=== PATIENT | female | born 1995 | race Caucasian/White ===

== ENCOUNTER 2016-11-11 17:22 | Outpatient (CLI) | payer SELFPAY ==
[~2016-11-11] VITALS: Ht 157.5 cm; Wt 65.0 kg
[~2016-11-11 17:22] MED LIST: ACET500C5 PO; METO10TA92 PO; ONDA4TAB35 PO
[2016-11-11 17:27] VITALS: Ht 157.5 cm; Wt 65.0 kg
--- NOTE | 2016-11-11 18:21 | TRIAGE ---
OB Triage Datetime Report Generated by CPN: 11/11/2016 18:21 Datetime: 11/11/2016 18:11 Maternal Assessment Level of Consciousness: Fully Conscious DTR's/Clonus: DTRs 1+ Headache: Denies Blurred Vision: Yes Respiratory Effort: Unlabored Breath Sounds, Left: Clear and Equal Breath Sounds, Right: Clear and Equal Nausea/Vomiting: Denies RUQ Epigastric Pain: Denies Facial Edema: None Labor Evaluation Frequency: NONE Monitor Mode: External Resting Tone [place]: Relaxed Heart Rate FHR Baseline Rate: 135 Monitor Mode: External US Variability: Moderate 6-25 bpm Accelerations: 15X15 Decelerations: None Category: Category I Pain Assessment Pain Scale: 0 Pain Presence: None/Denies Pain Type: N/A Pain Goal: 0 Vaginal Exam Dilatation (cms): 1.0 Effacement (%): 40 Station: -3 Exam By: Christiano SOUZA RN Membrane Status: Intact Vaginal Bleeding: None Cervix, Consistency: Soft Cervix, Position: Posterior Presentation 'A': Cephalic Datetime: 11/11/2016 17:26 Assessment Type: Triage Maternal Assessment Level of Consciousness: Fully Conscious DTR's/Clonus: DTRs 2+; No Clonus Headache: Denies Blurred Vision: No Respiratory Effort: Unlabored; Regular Rhythm; Equal Expansion Breath Sounds, Left: Clear and Equal Breath Sounds, Right: Clear and Equal Nausea/Vomiting: Denies RUQ Epigastric Pain: Denies Lower Extremities Edema: None Degree: None Upper Extremities Edema: None Degree: None Facial Edema: None Fall Risk Assessment History of Falling: (0) No Secondary Diagnosis: (0) No Ambulatory Aid: (0) Bedrest/Nurse Assist IV Therapy: (0) No Gait: (0) Normal/Bedrest/Immobile Mental Status: (0) Oriented to Own Ability Fall Score: 0 Fall Risk Score Definition: No Risk: No action required Datetime: 11/11/2016 17:20 Time of Arrival: 11/11/2016 17:20 EGA: 39.2 Arrived By: Ambulatory Arrived From: Home Chief Complaint: PT CAME IN TO R/O SROM. PT STATES THAT SHE BEEN LEAKING SINCE 0900 ON AND OFF DEN IES ANY UC'S AND STATES + FM Movement: Present Contractions: Denies/Absent Rupture of Membranes: Unsure Vaginal Bleeding: None Vaginal Discharge: Denies Recent Sexual Intercouse: Denies Abdominal Trauma: Not Applicable Patient Complaints: Other Additional Patient Complaints: NONE Time Provider Notified: 11/11/2016 17:30 Provider Notified: EVITA/ALEK Initial Plan: MONITOR, VE AND BPP
--- NOTE | 2016-11-11 18:50 | PN ---
Date/Time of Note Date/Time of Note DATE: 11/11/16 TIME: 18:36 OB Subjective Subjective Subjective November 11, 2006 OB triage consult This patient is a 21 years old 1 para 0, with EDC of November 16, 2016 which makes her 39 weeks and 2 days, She came into triage complaining of a possible rupture of membrane, she describes passing of the clear fluid around 9/15 this morning On examination she is a well-developed well-nourished lady at term Her abdomen is soft. does not have much of the contractions Fetus is in vertex presentation no CVA tenderness no tenderness at the bladder area however she has a slight tenderness at the suprapubic area on pelvic examination she did not have much of a fluid in the vagina , no pooling; Nitrazine test also was negative . Her Marlon plus requested which came back negative her blood pressure 118/79 pulse rate 82 temperature 90 Due to lack of any evidence of rupture membrane situation was discussed with the patient And she was discharged home to be followed in the clinic and to return to the hospital if any further evidence of rupture of membrane bleeding or beginning of contractions Laboratory Tests Test 11/11/16 17:40 Membranes Rupture NEGATIVE I should mention that on ultrasound study her biophysical profile was 8 out of 8 and her DIANE was 9.3 cm, End of dictation thank you Laboratory Tests Test 11/11/16 17:40 Membranes Rupture NEGATIVE DYLLAN GASTON MD Nov 11, 2016 18:49
--- NOTE | 2016-11-11 19:13 | RADRPT ---
PROCEDURE: Ultrasound CLINICAL INDICATION: . TECHNIQUE: Ultrasound examination of for evaluation of biophysical profile. COMPARISON: 10/22/2016. FINDINGS: breathing is appropriate for a score of 2; movement is appropriate for a score of 2; fet al tone is appropriate for a score of 2; and amniotic fluid is appropriate for age score of 2. Biophysical profile score of 05/14. Single live intrauterine is identified with estimated gestational age of 39 weeks and 2 da ys. The placenta is posterior. Placenta is grade II. Presentation is cephalic. Heart motion is detected at a rate of 132 beats per minute. DIANE is 9.10 IMPRESSION: Biophysical profile of 05/14. RPTAT: UU Physician Corby Date Time Electronically viewed and signed by Physician Corby on 11/11/2016 19:12 RS/
== END 2016-11-11 18:08 | disposition home or self-care (01) ==
LOC: OBT 17:22 → L-D 17:23 → OBT 18:08
PROVIDERS: ATTEND Obstetrics & Gynecology
DX: O47.1 False labor at or after 37 completed weeks of gestation (principal); Z3A.39 39 weeks gestation of pregnancy
CPT/HCPCS: 76818; 84112; G0463

== ENCOUNTER 2016-11-13 16:23 | Inpatient (IN) | payer OTHER ==
[~2016-11-13] VITALS: Ht 157.5 cm; Wt 84.2 kg
[2016-11-13 16:44] VITALS: Ht 157.5 cm; Wt 84.2 kg
[2016-11-13 16:45] VITALS: BP 126/85; PULSE 94; RESP 18
[2016-11-13] MEDS ORDERED: PRENAT PO (16:47)
[2016-11-13] MEDS ORDERED: FERR325C PO (16:48)
--- NOTE | 2016-11-13 18:26 | PN ---
Date/Time of Note Date/Time of Note DATE: 11/13/16 TIME: 18:21 OB Subjective Subjective Subjective November 13, 2016 Triage consult This patient is a 23 years old 2 para 0 with due date of November 16, 2016. Came in the triage area complaining of contractions since 6:00 AM. She is now 39 weeks and 4 days . No vaginal bleeding . She describe her contraction happening every 5-6 minutes. Her blood pressure was 126/85, pulse 94, respiration were normal As I mentioned she had contractions with 5-6 minutes apart On pelvic examination her cervix is about 2-3 cm about 70-75% station, -2to 3. Members intact. Current Medications Medications (Trade) Dose Ordered Sig/Mohan Route PRN Reason Start Time Stop Time Status Last Admin Dose Admin Lactated Ringer's (Lr) 1,000 ml @ 125 mls/hr Q8H IV 11/13/16 20:47 11/14/16 13:47 DC 11/14/16 05:22 Butorphanol Tartrate (Stadol) 1 mg Q2H PRN IV PAIN 11/13/16 21:00 11/14/16 13:47 DC Butorphanol Tartrate (Stadol) 2 mg Q2H PRN IV PAIN 11/13/16 21:00 11/14/16 13:47 DC Lidocaine 30 ml 30 ml ONCE PRN INJ EPISIOTOMY/TEARING 11/13/16 21:00 11/14/16 13:47 DC 11/14/16 12:07 Oxytocin/Lactated Ringer's 500 ml @ 125 mls/hr ONCE -MAY REPEAT X1 IV 11/13/16 21:00 11/14/16 13:47 DC 11/14/16 11:47 Oxytocin/Lactated Ringer's 500 ml @ 125 mls/hr ONCE IV 11/13/16 21:00 11/14/16 13:47 DC 11/14/16 12:18 Ibuprofen (Motrin) 600 mg ONCE PRN PO Mild Pain (Pain Score 1-3) 11/13/16 21:00 11/14/16 13:47 DC Acetaminophen/ Codeine Phosphate 2 tab 2 tab ONCE PRN PO Moderate to Severe Pain (4-10) 11/13/16 21:00 11/14/16 13:47 DC Lactated Ringer's 1,000 ml @ 2,000 mls/hr Q30M PRN IV PRE-EPIDURAL BOLUS 11/13/16 21:00 11/14/16 13:48 DC 11/14/16 04:17 Oxytocin/Lactated Ringer's 500 ml @ 0 mls/hr ONCE PRN IV For Hemorrhage Management 11/13/16 21:00 11/14/16 13:48 DC Methylergonovine Maleate (Methergine) 0.2 mg ONCE PRN IM VAGINAL BLEEDING 11/13/16 21:00 11/14/16 13:48 DC Carboprost Tromethamine (Hemabate) 250 mcg ONCE PRN IM VAGINAL BLEEDING 11/13/16 21:00 11/14/16 13:47 DC Misoprostol 1000 mcg 1,000 mcg ONCE PRN NM VAGINAL BLEEDING 11/13/16 21:00 11/14/16 13:48 DC Fentanyl/ Ropivacaine 100 ml @ ud STK-MED ONCE .ROUTE 11/14/16 04:52 11/14/16 04:53 DC Naloxone HCl (Narcan) 0.1 mg Q2M PRN IV FOR RESP RATE 8 OR LESS 11/14/16 06:00 11/14/16 13:47 DC Ketorolac Tromethamine (Toradol) 30 mg Q6H PRN IV PAIN 11/14/16 06:00 11/14/16 13:47 DC Fentanyl/ Ropivacaine 100 ml EPIDURAL INFUSION EPI 11/14/16 06:00 11/14/16 13:47 DC Ondansetron HCl (Zofran Inj) 4 mg ONCE ONCE IV 11/14/16 06:17 11/14/16 06:18 DC 11/14/16 06:26 Acetaminophen 650 mg 650 mg ONCE ONCE PO 11/14/16 06:30 11/14/16 06:31 DC 11/14/16 06:26 Oxytocin/Lactated Ringer's 500 ml @ 125 mls/hr Q4H IV 11/14/16 13:44 11/14/16 21:43 DC 11/14/16 20:01 Ibuprofen (Motrin) 600 mg Q6 PO 11/14/16 14:00 11/16/16 19:38 DC 11/16/16 12:11 Acetaminophen (Tylenol Tab) 650 mg Q4H PRN PO PAIN LEVEL 1-5 11/14/16 14:00 11/16/16 19:38 DC 11/15/16 21:11 Acetaminophen/ Codeine Phosphate (Tylenol No.3) 1 tab Q4H PRN PO PAIN LEVEL 1-5 11/14/16 14:00 11/16/16 19:38 DC Acetaminophen/ Codeine Phosphate (Tylenol No.3) 2 tab Q4H PRN PO PAIN LEVEL 6-10 11/14/16 14:00 11/16/16 19:38 DC 11/16/16 09:34 Oxycodone/Aspirin (Percodan) 1 tab Q3H PRN PO PAIN LEVEL 1-5 11/14/16 14:00 11/16/16 19:38 DC Oxycodone/Aspirin (Percodan) 2 tab Q3H PRN PO PAIN LEVEL 6-10 11/14/16 14:00 11/16/16 19:38 DC Ondansetron HCl (Zofran Inj) 4 mg Q6H PRN IV NAUSEA AND/OR VOMITING 11/14/16 14:00 11/16/16 19:38 DC Senna/Docusate Sodium (Senokot-S) 1 tab BID PO 11/14/16 21:00 11/16/16 19:38 DC 11/15/16 20:59 Witch Meme/ Glycerin (Tucks Pads) 1 pad BEDSIDE MEDICATION PRN [place] HEMORRHOID/EPISIOTMY PAIN 11/14/16 14:00 11/16/16 19:38 DC 11/15/16 00:42 Benzocaine (Dermoplast [place]) 1 spray BEDSIDE MEDICATION PRN TOP HEMORRHOID/EPISIOTMY PAIN 11/14/16 14:00 11/16/16 19:38 DC 11/14/16 16:13 Dibucaine (Nupercainal) 1 applic BEDSIDE MEDICATION PRN [place] HEMORRHOID/EPISIOTMY PAIN 11/14/16 14:00 11/16/16 19:38 DC 11/15/16 00:42 Lanolin (Hxf-Y-Ziluyz) 1 applic BEDSIDE MEDICATION PRN TOP BEDSIDE FOR GALEN TO NIPPLES 11/14/16 14:00 11/16/16 19:38 DC 11/15/16 00:42 Measles/Mumps/ Rubella Vaccine Live (Mmr Ii Vaccine) 0.5 ml ONCE ONCE SC* 11/16/16 09:00 11/16/16 09:01 DC Influenza Virus Vaccine (Fluzone) 0.5 ml ONCE ONCE IM* 11/16/16 09:00 11/16/16 09:01 DC 11/15/16 16:33 Diphtheria/ Tetanus/Acell Pertussis (Adacel) 0.5 ml ONCE ONCE IM* 11/15/16 16:30 11/15/16 16:31 DC 11/16/16 15:44 Diphtheria/ Tetanus/Acell Pertussis (Adacel) 0.5 ml ONCE ONCE IM* 11/16/16 10:00 11/16/16 10:01 DC Plan : we will keep her in triage area for another hour, if contraction continues or there is any changes in the cervix we will admit her in labor delivery room for delivery. DYLLAN GASTON MD Nov 13, 2016 18:25
[2016-11-13] MEDS ORDERED: METHYLERGONOVINE 0.2 MG INJ IM PRN (21:00)
[2016-11-13] MEDS ORDERED: MISOPROSTOL 200 MCG TAB PR PRN (21:00)
[2016-11-13] MEDS ORDERED: BUTORPHANOL 2 MG INJ IV PRN ×2 (21:00)
[2016-11-13] MEDS ORDERED: LIDOCAINE 1% (MPF) 30 ML INJ INJ PRN (21:00)
[2016-11-13] MEDS ORDERED: IBUPROFEN 600 MG TAB PO PRN (21:00)
[2016-11-13] MEDS ORDERED: LACTATED RINGER'S 1,000 ML IV PRN (21:00)
[2016-11-13] MEDS ORDERED: ACETAMINOPHEN/CODEINE #3 TAB PO PRN (21:00)
[2016-11-13] MEDS ORDERED: CARBOPROST 250 MCG INJ IM PRN (21:00)
[2016-11-13] MEDS ORDERED: OXYTOCIN 30 UNITS/LR 500 ML IV SCH ×2 (21:00)
[2016-11-13] MEDS ORDERED: OXYTOCIN 30 UNITS/LR 500 ML IV PRN (21:00)
[2016-11-13] MEDS: LACTATED RINGER'S 1,000 ML IV SCH (21:25)
[2016-11-13 22:13] LABS: INR 0.92; PARTIAL THROMBOPLASTIN TIME 27.7 Sec (25.0-35.0); PROTIME 12.4 Sec (12.2-14.2)
[2016-11-13 22:20] LABS: BASOPHILS % 0.2 % (0.0-2.0); EOSINOPHILS % 0.1 % (0.0-7.0); HEMATOCRIT 37.2 % (37.0-47.0); HEMOGLOBIN 11.8 g/dl (12.0-16.0); LYMPHOCYTES % 20.9 % (18.0-55.0); MEAN CORPUSCULAR HEMOGLOBIN 23.1 pg (29.0-33.0); MEAN CORPUSCULAR HGB CONC 31.8 g/dl (32.0-37.0); MEAN CORPUSCULAR VOLUME 72.5 fl (72.0-104.0); MEAN PLATELET VOLUME 11.5 fl (7.4-10.4); MONOCYTE # 0.9 10^3/ul (0.3-0.9); NEUTROPHIL # 10.5 10^3/ul (1.6-7.5); NEUTROPHILS % 72.8 % (30.0-74.0); PLATELET COUNT 225 10^3/UL (140-440); RED BLOOD COUNT 5.13 10^6/ul (4.20-5.40); RED CELL DISTRIBUTION WIDTH 16.4 % (11.5-14.5); UNCORRECTED WBC 14.4 10^3/ul (4.8-10.8); WHITE BLOOD COUNT 14.4 10^3/ul (4.8-10.8)
[2016-11-13 22:22] LABS: CONDITION 1; LH ANALYZER COMMENTS 1
[2016-11-13 23:08] LABS: ALBUMIN 3.2 g/dl (3.3-4.9)
[2016-11-13 23:09] LABS: POTASSIUM 3.7 mmol/L (3.5-5.1)
[2016-11-13 23:11] LABS: BILIRUBIN,INDIRECT 0.2 mg/dl (0-1.1); BILIRUBIN,TOTAL 0.2 mg/dl (0.2-1.3); CREATININE 0.57 mg/dl (0.44-1.00)
[2016-11-13 23:12] LABS: ALBUMIN/GLOBULIN RATIO 0.96; CALCIUM 9.2 mg/dl (8.4-10.2); TOTAL PROTEIN 6.5 g/dl (6.1-8.1); URIC ACID 5.1 mg/dl (3.1-7.9)
--- NOTE | 2016-11-13 23:36 | HP ---
Date/Time of Note Date/Time of Note DATE: 11/13/16 TIME: 23:33 OB - History Hx of Present Chief Complaint: contractions Estimated Due Date: Nov 16, 2016 : 1 Para: 0 Spontaneous : 0 Therapeutic : 0 Care: Good Care Obstetrical Complications: None Medical Complications: None Past Family/Social History * Past Medical, Surgical, Family and Obstetric Histories reviewed from chart. GBS Status: Negative OB Admission Exam Vital Signs Vital Signs Vital Signs Date Time Temp Pulse Resp B/P Pulse Ox O2 Delivery O2 Flow Rate FiO2 11/13/16 16:45 98.3 94 18 126/85 Room Air Physical Exam HEENT: WNL Heart: Rhythm Normal Lungs: Clear Abdomen: WNL Extremities: Normal Cervical Dilatation: 3cm Effacement: 75% Station: -1 Membranes: Intact Heart Rate: 130's Accelerations: Accelerations Present Decelerations: No Decelerations Varibility: Moderate Last 72 hours Lab Results CBC & BMP 11/13/16 21:25 Liver Function Test 11/13/16 21:25 Alanine Aminotransferase (ALT/SGPT) 18 Albumin 3.2 L Alkaline Phosphatase 189 H Aspartate Amino Transf (AST/SGOT) 29 Direct Bilirubin 0.00 Total Protein 6.5 OB Assessment/Plan Reason for admission: active labor Plan: Expectant Management LOKI HOLLINGSWORTH MD Nov 13, 2016 23:36
[2016-11-13 23:44] LABS: ADD UMIC YES; URINE BILIRUBIN (Dip) NEGATIVE (NEGATIVE); URINE BLOOD (Dip) 3+ (NEGATIVE); URINE COLOR LT. YELLOW (YELLOW); URINE GLUCOSE (Dip) NEGATIVE (NEGATIVE); URINE KETONES (Dip) 3+ (NEGATIVE); URINE LEUKOCYTE ESTERASE (Dip) 2+ (NEGATIVE); URINE NITRITE (Dip) NEGATIVE (NEGATIVE); URINE TOTAL PROTEIN (Dip) TRACE (NEGATIVE); URINE UROBILINOGEN (Dip) 0.2 E.U./dL (0.1-1.0)
[2016-11-14 00:11] LABS: BACTERIA,URINE MANY; SQUAMOUS EPITHELIAL CELL,UR MODERATE; URINE RBCS >50 /HPF (0)
[2016-11-14] MEDS ORDERED: FENTAnyl 2MCG/ML-ROPIV 0.2% 100 ML ONE (04:52)
[2016-11-14] MEDS: LACTATED RINGER'S 1,000 ML IV SCH (05:22)
[2016-11-14] MEDS ORDERED: NALOXONE (0.4 MG/ML) INJ IV PRN (06:00)
[2016-11-14] MEDS ORDERED: FENTAnyl 2MCG/ML-ROPIV 0.2% 100 ML BAG EPI SCH (06:00)
[2016-11-14] MEDS ORDERED: KETOROLAC 30 MG INJ IV PRN (06:00)
[2016-11-14] MEDS ORDERED: ONDANSETRON 4 MG INJ IV ONE (06:17)
[2016-11-14] MEDS ORDERED: ACETAMINOPHEN 325 MG TAB PO ONE (06:30)
--- NOTE | 2016-11-14 12:16 | LDN ---
Date/Time of Note Date/Time of Note DATE: 11/14/16 TIME: 12:13 Delivery Summary called to cover for urgent delivery. Patient had been managed during labor by Dr. Giles. I was called due to patient's significant urge to delivery Placenta Delivered: Spontaneously Meconium: none Perineum intact?: No Perineal laceration: 2 Perineal laceration repair: second degree perineal laceration. repaired with 2-0 chromic Anesthesia type: Epidural Estimated blood loss: 400 Sponge & Needle done & correct: Yes All needle counts correct: Yes Any foreign bodies felt in the: No Problems: Infant Delivery Information Sex Infant Sex: female Apgars 1 Minute: 9 5 Minute: 9 Suctioning Nose & mouth suctioned at leon: Yes Delee suction performed: Yes Umbilical Cord Umbilical cord with: 3 Vessels Cord presentations: no nuchal cord Cord Blood was obtained: Yes TERESA HI MD Nov 14, 2016 12:15
--- NOTE | 2016-11-14 13:30 | DELSUM ---
Delivery Summary A-C Datetime Report Generated by CPN: 11/14/2016 13:30 DELIVERY PERSONNEL [employer] Operator: Will, Georgina MATERNAL INFORMATION Delivery Anesthesia: Epidural Medications in Delivery: 30 UNITS PITOCIN IN 500 ML LR Estimated Blood Loss (ml): 400 Placenta Cultured: No Maternal Complications: None LABOR SUMMARY EDC: 11/16/2016 00:00 No. Babies in Womb: 1 Attempted: No Labor Anesthesia: Epidural LABOR INFORMATION Reason for Induction: Not Applicable Onset of Labor: 11/13/2016 06:00 Complete Dilatation: 11/14/2016 09:39 Oxytocin: N/A Group B Beta Strep: Negative Antibiotics # of Doses: 0 Antibiotics Time of Last Dose: 0 Steroids Given: None Reason Steroids Not Administered: Not Applicable MEMBRANES Membranes Rupture Method: Artificial Rupture of Membranes: 11/14/2016 08:28 Length of Rupture (hr): 3.23 Amniotic Fluid Color: Clear Amniotic Fluid Amount: Moderate Amniotic Fluid Odor: None STAGES OF LABOR Stage 1 hr: 27 Stage 1 min: 39 Stage 2 hr: 2 Stage 2 min: 3 Stage 3 hr: 0 Stage 3 min: 4 Total Time in Labor hr: 29 Total Time in Labor min: 46 VAGINAL DELIVERY Episiotomy: None Laceration Extension: Second Degree Laceration Type: Perineal; Vaginal Laceration Repair: Yes Initial Vag Sponge Count: 20 Final Vag Sponge Count: 20 Initial Vag Sharps Count: 1 Final Vag Sharps Count: 3 Sponge Count Correct: Yes; Vaginal Sweep Performed Sharps Count Correct: Yes BABY A INFORMATION Delivery Date/Time: 11/14/2016 11:42 Method of Delivery: Vaginal Born in Route : No : N/A Forceps: N/A Vacuum Extraction: N/A Shoulder Dystocia : N/A SHOULDER DYSTOCIA BABY A Delivery Date/Time: 11/14/2016 11:42 PRESENTATION/POSITION BABY A Presentation: Cephalic Presentation: Cephalic Presentation: Cephalic Presentation: Cephalic Presentation: Cephalic Cephalic Presentation: Vertex Vertex Position: Left Occipital Anterior Breech Presentation: N/A PLACENTA INFORMATION BABY A Placenta Delivery Time : 11/14/2016 11:46 Placenta Method of Delivery: Spontaneous Placenta Status: Delivered SCORES BABY A Heart Rate 1 min: >100 bpm Resp Effort 1 min: Good Cry Reflex Irritability 1 min: Cough/Sneeze/Pulls Away Muscle Tone 1 min: Active Motion Color 1 min: Body Iatan, Extremit Blue Resuscitation Effort 1 min: Tactile Stimulation SCORE 1 MIN: 9 Heart Rate 5 min: >100 bpm Resp Effort 5 min: Good Cry Reflex Irritability 5 min: Cough/Sneeze/Pulls Away Muscle Tone 5 min: Active Motion Color 5 min: Body Iatan, Extremit Blue Resuscitation Effort 5 min: Tactile Stimulation SCORE 5 MIN: 9 INFANT INFORMATION BABY A Gestational Age at Delivery: 39.5 Gestational Status: Full Term- 39- 40.6 Weeks Infant Outcome : Liveborn Condition : Stable Infant Sex: Female IDENTIFICATION/MEDS BABY A ID Band Number: [id number] ID Band Location: Right Leg; Left Arm Sensor Applied: Yes Sensor Number: [id number] Sensor Location : Cord Clamp Vitamin K Given : Aquamephyton 1 mg IM; Left Thigh Erythromycin Given: Given Both Eyes WEIGHT/LENGTH BABY A Birthweight (gm): 3395 Infant Weight (lb): 7 Weight (oz): 8 Infant Length (in): 22.00 Infant Length (cm): 55.88 CORD INFORMATION BABY A No. Cord Vessels: 3 Nuchal Cord : N/A Cord Blood Taken: Yes Suction: Nose; Pharynx ASSESSMENT BABY A Complications: None Physical Findings at Delivery: Caput Succedaneum Infant Respirations: Appears Normal Furniture Delivery Driver/ALS Called : Yes Infant Care By: EVERARDO Transferred To: Remains with Mother
[2016-11-14 13:50] VITALS: BP 131/80; PULSE 93; RESP 20
[2016-11-14] MEDS ORDERED: LANOLIN 7 GM TUBE TOP PRN (14:00)
[2016-11-14] MEDS: IBUPROFEN 600 MG TAB PO SCH ×2 (14:00→18:00)
[2016-11-14] MEDS ORDERED: DIBUCAINE 1% 30 GM OINT PR PRN (14:00)
[2016-11-14] MEDS ORDERED: ACETAMINOPHEN/CODEINE #3 TAB PO PRN (14:00)
[2016-11-14] MEDS ORDERED: WITCH HAZEL/GLYCERIN PAD PR PRN (14:00)
[2016-11-14] MEDS ORDERED: OXYCODONE/ASPIRIN (4.88/325) TAB PO PRN ×2 (14:00)
[2016-11-14] MEDS ORDERED: BENZOCAINE 20% 56 ML SPRAY TOP PRN (14:00)
[2016-11-14] MEDS ORDERED: ONDANSETRON 4 MG INJ IV PRN (14:00)
[2016-11-14] MEDS: OXYTOCIN 30 UNITS/LR 500 ML IV SCH ×2 (15:15→20:01)
[2016-11-14] MEDS: ACETAMINOPHEN/CODEINE #3 TAB PO PRN (15:15)
[2016-11-14 16:07] VITALS: BP 131/81; PULSE 96; RESP 20
[2016-11-14 19:45] VITALS: BP 110/56; PULSE 111; RESP 20
[2016-11-14] MEDS: SENNA/DOCUSATE NA (8.6MG/50MG) TAB PO SCH (21:00)
[2016-11-15] VITALS: BP 124/61; PULSE 111; RESP 18
[2016-11-15] MEDS: IBUPROFEN 600 MG TAB PO SCH ×4 (00:42→23:13)
[2016-11-15 04:00] VITALS: BP 106/61; PULSE 92; RESP 19
[2016-11-15 08:00] VITALS: BP 120/61; RESP 20
[2016-11-15 08:07] LABS: BASOPHILS % 0.2 % (0.0-2.0); EOSINOPHILS % 0.2 % (0.0-7.0); HEMATOCRIT 28.3 % (37.0-47.0); HEMOGLOBIN 9.2 g/dl (12.0-16.0); LYMPHOCYTES # 3.7 10^3/ul (0.8-2.9); LYMPHOCYTES % 18.3 % (18.0-55.0); MEAN CORPUSCULAR HEMOGLOBIN 23.7 pg (29.0-33.0); MEAN CORPUSCULAR HGB CONC 32.4 g/dl (32.0-37.0); MEAN PLATELET VOLUME 11.3 fl (7.4-10.4); MONOCYTE # 1.2 10^3/ul (0.3-0.9); MONOCYTES % 5.9 % (0.0-13.0); NEUTROPHIL # 15.3 10^3/ul (1.6-7.5); NEUTROPHILS % 75.4 % (30.0-74.0); PLATELET COUNT 178 10^3/UL (140-440); RED BLOOD COUNT 3.87 10^6/ul (4.20-5.40); UNCORRECTED WBC 20.3 10^3/ul (4.8-10.8); WHITE BLOOD COUNT 20.3 10^3/ul (4.8-10.8)
[2016-11-15 08:13] LABS: CONDITION 1; LH ANALYZER COMMENTS 1
[2016-11-15] MEDS: SENNA/DOCUSATE NA (8.6MG/50MG) TAB PO SCH ×2 (09:22→20:59)
[2016-11-15 15:58] VITALS: BP 115/60; PULSE 89
--- NOTE | 2016-11-15 16:20 | PN ---
Date/Time of Note Date/Time of Note DATE: 11/15/16 TIME: 16:19 OB Subjective Subjective Subjective day 1 Afebrile, vital sign stable, abdomen soft, itches firm, lochia normal, extremity normal Laboratory Tests Test 11/15/16 06:41 Basophils # 0.010^3/ul Basophils % 0.2% Blood Morphology Comment Eosinophils # 0.010^3/ul Eosinophils % 0.2% Hematocrit 28.3% Hemoglobin 9.2g/dl Lymphocytes # 3.710^3/ul Lymphocytes % 18.3% Mean Corpuscular Hemoglobin 23.7pg Mean Corpuscular Hemoglobin Concent 32.4g/dl Mean Corpuscular Volume 73.0fl Mean Platelet Volume 11.3fl Monocytes # 1.210^3/ul Monocytes % 5.9% Neutrophils # 15.310^3/ul Neutrophils % 75.4% Nucleated Red Blood Cells # 0.010^3/ul Nucleated Red Blood Cells % 0.0/100WBC Platelet Count 33464^3/UL Red Blood Count 3.8710^6/ul Red Cell Distribution Width 17.0% White Blood Count 20.310^3/ul Current Medications Medications (Trade) Dose Ordered Sig/Mohan Route PRN Reason Start Time Stop Time Status Last Admin Dose Admin Lactated Ringer's (Lr) 1,000 ml @ 125 mls/hr Q8H IV 11/13/16 20:47 11/14/16 13:47 DC 11/14/16 05:22 Butorphanol Tartrate (Stadol) 1 mg Q2H PRN IV PAIN 11/13/16 21:00 11/14/16 13:47 DC Butorphanol Tartrate (Stadol) 2 mg Q2H PRN IV PAIN 11/13/16 21:00 11/14/16 13:47 DC Lidocaine 30 ml 30 ml ONCE PRN INJ EPISIOTOMY/TEARING 11/13/16 21:00 11/14/16 13:47 DC 11/14/16 12:07 Oxytocin/Lactated Ringer's 500 ml @ 125 mls/hr ONCE -MAY REPEAT X1 IV 11/13/16 21:00 11/14/16 13:47 DC 11/14/16 11:47 Oxytocin/Lactated Ringer's 500 ml @ 125 mls/hr ONCE IV 11/13/16 21:00 11/14/16 13:47 DC 11/14/16 12:18 Ibuprofen (Motrin) 600 mg ONCE PRN PO Mild Pain (Pain Score 1-3) 11/13/16 21:00 11/14/16 13:47 DC Acetaminophen/ Codeine Phosphate 2 tab 2 tab ONCE PRN PO Moderate to Severe Pain (4-10) 11/13/16 21:00 11/14/16 13:47 DC Lactated Ringer's 1,000 ml @ 2,000 mls/hr Q30M PRN IV PRE-EPIDURAL BOLUS 11/13/16 21:00 11/14/16 13:48 DC 11/14/16 04:17 Oxytocin/Lactated Ringer's 500 ml @ 0 mls/hr ONCE PRN IV For Hemorrhage Management 11/13/16 21:00 11/14/16 13:48 DC Methylergonovine Maleate (Methergine) 0.2 mg ONCE PRN IM VAGINAL BLEEDING 11/13/16 21:00 11/14/16 13:48 DC Carboprost Tromethamine (Hemabate) 250 mcg ONCE PRN IM VAGINAL BLEEDING 11/13/16 21:00 11/14/16 13:47 DC Misoprostol 1000 mcg 1,000 mcg ONCE PRN [place] VAGINAL BLEEDING 11/13/16 21:00 11/14/16 13:48 DC Fentanyl/ Ropivacaine 100 ml @ ud STK-MED ONCE .ROUTE 11/14/16 04:52 11/14/16 04:53 DC Naloxone HCl (Narcan) 0.1 mg Q2M PRN IV FOR RESP RATE 8 OR LESS 11/14/16 06:00 11/14/16 13:47 DC Ketorolac Tromethamine (Toradol) 30 mg Q6H PRN IV PAIN 11/14/16 06:00 11/14/16 13:47 DC Fentanyl/ Ropivacaine 100 ml EPIDURAL INFUSION EPI 11/14/16 06:00 11/14/16 13:47 DC Ondansetron HCl (Zofran Inj) 4 mg ONCE ONCE IV 11/14/16 06:17 11/14/16 06:18 DC 11/14/16 06:26 Acetaminophen 650 mg 650 mg ONCE ONCE PO 11/14/16 06:30 11/14/16 06:31 DC 11/14/16 06:26 Oxytocin/Lactated Ringer's 500 ml @ 125 mls/hr Q4H IV 11/14/16 13:44 11/14/16 21:43 DC 11/14/16 20:01 Ibuprofen (Motrin) 600 mg Q6 PO 11/14/16 14:00 11/15/16 12:24 Acetaminophen (Tylenol Tab) 650 mg Q4H PRN PO PAIN LEVEL 1-5 11/14/16 14:00 Acetaminophen/ Codeine Phosphate (Tylenol No.3) 1 tab Q4H PRN PO PAIN LEVEL 1-5 11/14/16 14:00 Acetaminophen/ Codeine Phosphate (Tylenol No.3) 2 tab Q4H PRN PO PAIN LEVEL 6-10 11/14/16 14:00 11/14/16 15:15 Oxycodone/Aspirin (Percodan) 1 tab Q3H PRN PO PAIN LEVEL 1-5 11/14/16 14:00 Oxycodone/Aspirin (Percodan) 2 tab Q3H PRN PO PAIN LEVEL 6-10 11/14/16 14:00 Ondansetron HCl (Zofran Inj) 4 mg Q6H PRN IV NAUSEA AND/OR VOMITING 11/14/16 14:00 Senna/Docusate Sodium (Senokot-S) 1 tab BID PO 11/14/16 21:00 11/15/16 09:22 Witch Meme/ Glycerin (Tucks Pads) 1 pad BEDSIDE MEDICATION PRN [place] HEMORRHOID/EPISIOTMY PAIN 11/14/16 14:00 11/15/16 00:42 Benzocaine (Dermoplast [place]) 1 spray BEDSIDE MEDICATION PRN TOP HEMORRHOID/EPISIOTMY PAIN 11/14/16 14:00 11/14/16 16:13 Dibucaine (Nupercainal) 1 applic BEDSIDE MEDICATION PRN [place] HEMORRHOID/EPISIOTMY PAIN 11/14/16 14:00 11/15/16 00:42 Lanolin (Qec-W-Romnwt) 1 applic BEDSIDE MEDICATION PRN TOP BEDSIDE FOR GALEN TO NIPPLES 11/14/16 14:00 11/15/16 00:42 Measles/Mumps/ Rubella Vaccine Live (Mmr Ii Vaccine) 0.5 ml ONCE ONCE SC* 11/16/16 09:00 11/16/16 09:01 Influenza Virus Vaccine (Fluzone) 0.5 ml ONCE ONCE IM* 11/16/16 09:00 11/16/16 09:01 Diphtheria/ Tetanus/Acell Pertussis (Adacel) 0.5 ml ONCE ONCE IM* 11/15/16 16:30 11/15/16 16:31 JESSEE JAMA MD Nov 15, 2016 16:20
[2016-11-15] MEDS ORDERED: DIPHTH/TET/ACEL PERTUSS (ADULT) 0.5 ML VIAL IM* ONE (16:30)
[2016-11-15] MEDS: ACETAMINOPHEN 325 MG TAB PO PRN ×2 (16:32→21:11)
[2016-11-15 19:30] VITALS: BP 114/68; PULSE 96; RESP 18
[2016-11-16 04:00] VITALS: BP 114/70; PULSE 92; RESP 18
[2016-11-16] MEDS: IBUPROFEN 600 MG TAB PO SCH ×2 (05:31→12:11)
[2016-11-16] MEDS ORDERED: MEASLES,MUMPS,RUBELLA VACCINE INJ SC* ONE (09:00)
[2016-11-16] MEDS: SENNA/DOCUSATE NA (8.6MG/50MG) TAB PO SCH (09:00)
[2016-11-16] MEDS ORDERED: INFLUENZA VIRUS VACCINE 0.5 ML (DISPENSING) IM* ONE (09:00)
[2016-11-16] MEDS: ACETAMINOPHEN/CODEINE #3 TAB PO PRN (09:34)
[2016-11-16] MEDS ORDERED: DIPHTH/TET/ACEL PERTUSS (ADULT) 0.5 ML VIAL IM* ONE (10:00)
--- NOTE | 2016-11-16 14:44 | PD.PPDC ---
TUBE BENDER HAND Discharge Instruction Condition Patient Condition: Good Diet Diet: Resume Regular Diet Activity/Restrictions Activity: Normal Activity May Shower Restrictions: No Exercising No Lifting No Driving No Sexual Activity Nothing in the Vagina No [place] No Tampons, douche Follow-up Follow-up with Physician: Week/Weeks Return to clinic for ANESTHESIA RESIDENT Instructions: Fever greater than 101 Excessive Vaginal Bleeding More than 2 pads per hour JESSEE JAMA MD Nov 16, 2016 14:44
--- NOTE | 2016-11-16 14:46 | DS ---
Date/Time of Note Date/Time of Note DATE: 11/16/16 TIME: 14:45 Obstetrical Discharge Record Final Diagnosis Final Diagnosis: Term delivered Vaginal Delivery Obstetrical Delivery: Spontaneous Condition on Discharge Physical Assessment Last Vitals: VSS stable Abdomen soft uterus firm lochia normal extremity normal patient discharged home with follow-up instruction to be seen at the clinic 2 weeks Voiding: Yes Bowel Movement: Yes Breast: Filling Fundus: Firm Calf Tenderness: No Patient Condition: Good JESSEE JAMA MD Nov 16, 2016 14:46
== END 2016-11-16 18:45 | disposition home or self-care (01) | DRG 775 ==
LOC: OBT 16:23 → L-D 16:23 → OBT 20:30 → L-D 21:53 → PP1 11-14 13:53
PROVIDERS: ADMIT Obstetrics & Gynecology; ATTEND Obstetrics & Gynecology
PROC: 10E0XZZ Delivery of Products of Conception, External Approach (ICD-10-PCS; principal; 2016-11-14)
PROC: 0KQM0ZZ Repair Perineum Muscle, Open Approach (ICD-10-PCS; 2016-11-14)
PROC: 3E00X4Z Introduction of Serum, Toxoid and Vaccine into Skin and Mucous Membranes, External Approach (ICD-10-PCS; 2016-11-15)
DX: O70.1 Second degree perineal laceration during delivery (principal); Z37.0 Single live birth; Z23 Encounter for immunization; Z3A.39 39 weeks gestation of pregnancy
CPT/HCPCS: 62319; 80053; 81001; 81003; 84560; 85025; 85610; 85730; 86592; 86900; 86901; 90686; 90715; G0463; J2405; J2590; J3010; J7120